=== PATIENT | male | born 1995 | race Caucasian/White ===

== ENCOUNTER 2017-02-08 17:02 | Emergency (ER) | payer OTHER ==
[2017-02-08 17:27] VITALS: BP 117/57; PULSE 54; RESP 18; TEMP 98.8; O2SAT 97
--- NOTE | 2017-02-08 18:36 | ED PDOC ---
Lower Extremity Pain/Injury Time Seen by Provider: 02/08/17 17:36 Chief Complaint (Nursing): Lower Extremity Problem/Injury Chief Complaint (Provider): Left knee injury History Per: Patient History/Exam Limitations: no limitations Onset/Duration Of Symptoms: Days (x 4) Current Symptoms Are (Timing): Still Present Additional Complaint(s): Karen is a 21 y/o male who presents to the ED for evaluation of left knee injury, sustained on . Patient states he was playing in a soccer game and was tackled, resulting in left knee injury. He reports icing his knee but denies taking any medications for pain relief. PMD: None Past Medical History Reviewed: Historical Data, Nursing Documentation, Vital Signs Vital Signs: Last Vital Signs Temp 98.8 F 02/08/17 17:25 Pulse 54 L 02/08/17 17:25 Resp 18 02/08/17 17:25 BP 117/57 L 02/08/17 17:25 Pulse Ox 97 02/08/17 17:25 - Medical History PMH: No Chronic Diseases - Surgical History Surgical History: No Surg Hx - Family History Family History: States: No Known Family Hx - Living Arrangements Living Arrangements: With Family - Social History Current smoker - smoking cessation education provided: Yes Alcohol: None Drugs: Denies - Allergies Allergies/Adverse Reactions: Allergies Allergy/AdvReac Type Severity Reaction Status Date / Time No Known Allergies Allergy Verified 02/08/17 17:25 Wells Criteria for PE - Wells Criteria for Pulmonary Embolism Clinical Signs and Symptoms of DVT: No P.E is #1 Diagnosis, or Equally Likely: No Heart Rate >100: No Immobilization at least 3 days;Surgery previous 4 weeks: No Previous, objectively diagnosed PE or DVT: No Hemoptysis: No Malignancy w/treatment within 6 months, or palliative: No Total Score: 0 Review of Systems ROS Statement: Except As Marked, All Systems Reviewed And Found Negative Musculoskeletal: Positive for: Other (left knee injury) Neurological: Negative for: Weakness, Numbness Physical Exam - Reviewed Nursing Documentation Reviewed: Yes Vital Signs Reviewed: Yes - Physical Exam Appears: Positive for: Well, Non-toxic, No Acute Distress Head Exam: Positive for: ATRAUMATIC, NORMAL INSPECTION, NORMOCEPHALIC Skin: Positive for: Normal Color. Negative for: Rash Eye Exam: Positive for: Normal appearance Back: Negative for: Vertebral Tenderness Extremity: Positive for: Swelling (Mild swelling to the left knee, with full ROM ). Negative for: Calf Tenderness Neurologic/Psych: Positive for: Alert, Oriented - ECG O2 Sat by Pulse Oximetry: 97 (RA) Pulse Ox Interpretation: Normal - Other Rad Left knee x-ray X-Ray: Interpreted by Me, Viewed By Me X-Ray Interpretation: no fx, no dis Medical Decision Making Medical Decision Makin21 year old male with left knee injury Time: 17:37 Plan: --Patient given Ibuprofen 600 mg PO --Ordered X-Ray Left Knee Patient is aware of x-ray results, all questions answered. Knee immobilizer was placed and crutches were provided. Patient is medically stable for discharge home. Patient was instructed to take [id number] NSAID's for pain as needed. Patient was referred to ortho special education curriculum specialist for follow up. Scribe Attestation: Documented by Nishi Collins, acting as a scribe for Maria Del Carmen Nolasco PA-C Provider Scribe Attestation: All medical record entries made by the Scribe were at my direction and personally dictated by me. I have reviewed the chart and agree that the record accurately reflects my personal performance of the history, physical exam, medical decision making, and the department course for this patient. I have also personally directed, reviewed, and agree with the discharge instructions and disposition. Procedures - Splinting Location: Left knee Pre-Made Type: knee immobilizer Pre-Proc Neuro Vasc Exam: normal Post-Proc Neuro Vasc Exam: normal Disposition - Clinical Impression Clinical Impression: Knee injury - Patient ED Disposition Is Patient to be Admitted: No Counseled Patient/Family Regarding: Studies Performed, Diagnosis, Need For Followup - Disposition Referrals: Andrea Bales MD [Staff Provider] - Disposition: Routine/Home Disposition Time: 19:26 Condition: STABLE Additional Instructions: Ice, rest and elevate affected area. Take over the counter advil or tylenol for pain. Follow up with orthopedist in 2-3 days. Instructions: Knee Sprain (ED), Knee Immobilizer (ED), Crutch Instructions (ED) Forms: [employer] [facility] (Stateless)
--- NOTE | 2017-02-09 09:49 | RAD ---
PROCEDURE: Left Knee Radiographs. HISTORY: Pain. COMPARISON: None. FINDINGS: BONES: Normal. No fracture. JOINTS: Normal. No osteoarthritis. JOINT EFFUSION: None. OTHER FINDINGS: None. IMPRESSION: Normal radiographs of the left knee.
== END 2017-02-08 19:55 | disposition home or self-care (01) ==
LOC: H.ER 17:02
DX: S89.92XA Unspecified injury of left lower leg, initial encounter (principal); W03.XXXA Other fall on same level due to collision with another person, initial encounter; Y93.66 Activity, soccer

== ENCOUNTER 2017-12-17 17:42 | Emergency (ER) | payer OTHER ==
[2017-12-17 17:48] VITALS: BP 109/60; PULSE 64; RESP 16; TEMP 98.3; O2SAT 100
[2017-12-17 17:51] VITALS: BMI 21.9
[2017-12-17] MEDS ORDERED: PROPARACAINE/FLUORESCEIN SOD 100 DROP/5 ML BOTTLE OU STA (18:03)
--- NOTE | 2017-12-17 18:13 | ED PDOC ---
HPI: Eye Injury/Pain Time Seen by Provider: 12/17/17 18:01 Chief Complaint (Nursing): Eye Problem Chief Complaint (Provider): Eye Problem History Per: Patient History/Exam Limitations: no limitations Onset/Duration Of Symptoms: Days (x2) Current Symptoms Are (Timing): Still Present Wears Contact Lens?: Yes Associated Symptoms: denies: Decreased Vision, Discharge From Eye Additional Complaint(s): 22 y/o male with no significant PMHx presents to the ED complaining of bilateral eye redness, tearing, and irritation, onset 2 days ago. Patient reports of wearing contact lenses. Denies discharge and vision change. PMD: None Provided Past Medical History Reviewed: Historical Data, Nursing Documentation, Vital Signs Vital Signs: Last Vital Signs Temp 98.3 F 12/17/17 17:48 Pulse 64 12/17/17 17:48 Resp 16 12/17/17 17:48 BP 109/60 12/17/17 17:48 Pulse Ox 100 12/17/17 17:48 - Medical History PMH: No Chronic Diseases - Surgical History Surgical History: No Surg Hx - Family History Family History: States: Unknown Family Hx - Immunization History Hx Tetanus Toxoid Vaccination: No Hx Influenza Vaccination: No Hx Pneumococcal Vaccination: No - Home Medications Home Medications: Ambulatory Orders Medication Instructions Recorded Tobramycin 0.3% [Tobramycin 5 Ml] 1 drop OP TID #1 bottle 12/17/17 - Allergies Allergies/Adverse Reactions: Allergies Allergy/AdvReac Type Severity Reaction Status Date / Time No Known Allergies Allergy Verified 12/17/17 17:49 Review of Systems ROS Statement: Except As Marked, All Systems Reviewed And Found Negative Eyes: Positive for: Redness, Other (Tearing and irritation). Negative for: Vision Change Physical Exam - Reviewed Nursing Documentation Reviewed: Yes Vital Signs Reviewed: Yes - Physical Exam Appears: Positive for: Non-toxic, No Acute Distress Head Exam: Positive for: ATRAUMATIC, NORMOCEPHALIC Skin: Positive for: Normal Color, Warm, Dry Eye Exam: Positive for: EOMI, PERRL, Conjunctival injection (Bilateral), Scleral icterus (Bilateral). Negative for: Other (Fluroscene Uptake) Neck: Positive for: Normal, Painless ROM Cardiovascular/Chest: Negative for: Bradycardia, Tachycardia Respiratory: Negative for: Accessory Muscle Use, Respiratory Distress Extremity: Positive for: Normal ROM. Negative for: Deformity Neurologic/Psych: Positive for: Alert, Oriented (x3). Negative for: Motor/ Sensory Deficits - ECG O2 Sat by Pulse Oximetry: 100 (RA) Pulse Ox Interpretation: Normal Medical Decision Making Medical Decision Making: Time: 1802 Plan: -- Flucaine Eye Drops 2 drops OU -- Motrin 600 mg PO Scribe Attestation: Documented by Eliel Alcantar acting as a scribe for Dr. Yair Virgen MD. Provider Scribe Attestation: All medical record entries made by the Scribe were at my direction and personally dictated by me. I have reviewed the chart and agree that the record accurately reflects my personal performance of the history, physical exam, medical decision making, and the department course for this patient. I have also personally directed, reviewed, and agree with the discharge instructions and disposition. Disposition - Clinical Impression Clinical Impression: Conjunctivitis - Patient ED Disposition Is Patient to be Admitted: No Counseled Patient/Family Regarding: Diagnosis, Need For Followup, Rx Given - Disposition Referrals: Paolo Schilling MD [Staff Provider] - Disposition: Routine/Home Disposition Time: 18:16 Condition: FAIR Prescriptions: Tobramycin 0.3% [Tobramycin 5 Ml] 1 drop OP TID #1 bottle Instructions: Conjunctivitis ([place]) Forms: [facility] ([place]o)
== END 2017-12-17 18:30 | disposition home or self-care (01) ==
LOC: H.ER 17:42
DX: H10.9 Unspecified conjunctivitis (principal)